=== PATIENT | female | born 1935 | race Caucasian/White ===

== ENCOUNTER → 2016-10-31 | Day surgery (SDC) | payer MEDICARE ==
[~2016-10-31] MED LIST: ALPR0.25 PO; ASPI1TAB69 PO; ATOR10TA15 PO; CALCCHW9 CHEW; DORZ2SOL15 EACH EYE; ERGO1CAP10 PO; HYALURONIDASE/LIDOCAINE/EPINEPHRINE/BUPIVACAINE 6 ML SYR LEFT EYE ONE; HYALURONIDASE/LIDOCAINE/EPINEPHRINE/BUPIVACAINE 6 ML SYR ONE; ICAPCAP PO; LANS30CA PO; LIDOCAINE HCL 1% 20 ML VIAL ONE; LIDOCAINE HCL 1% 30 ML VIAL ONE; LISI10TA3 PO; METF500T PO; METO25TA3 PO; MIDAZOLAM HCL 2 MG/2 ML VIAL ONE; PROPARACAINE HCL 0.5% OPHT SOLN 15 ML BTL LEFT EYE ONE; PROPOFOL 200 MG/20 ML AMP ONE; SODIUM CHLORID 0.9% 500 ML INJ 500 ML ONE; ZETI10TA5 PO
[2016-10-31 10:00] VITALS: PULSE 56
[2016-10-31] MEDS: FLURBIPROFEN 0.03% OPHT SOLN 2.5 ML BTL LEFT EYE SCH ×4 (10:00→10:15)
[2016-10-31] MEDS: PHENYLEPHRINE HCL 10% OPTH SOLN 5 ML BTL LEFT EYE SCH ×4 (10:00→10:15)
[2016-10-31] MEDS: TROPICAMIDE 1% OPHT SOLN 15 ML BTL LEFT EYE SCH ×4 (10:00→10:15)
[2016-10-31] MEDS: CYCLOPENTOLATE HCL 1% OPHT SOLN 2 ML BTL LEFT EYE SCH ×4 (10:00→10:15)
[2016-10-31] MEDS: TOBRAMYCIN/DEXAMETHASONE OPTH OINT 3.5 GM TUBE ONE ×2 (10:55→11:05)
[2016-10-31 11:10] VITALS: TEMP 97.8
[2016-10-31 11:35] VITALS: BP 153/66; PULSE 61; RESP 14; O2SAT 96
--- NOTE | 2016-11-03 04:46 | MP ---
cc: SYED MAGALLANES MD [facility] #[id number] DATE OF SURGERY: 10/31/2016 PREOPERATIVE DIAGNOSIS: Visually significant cataract, left eye. POSTOPERATIVE DIAGNOSIS: Visually significant cataract, left eye. OPERATION: Phacoemulsification with posterior chamber lens implantation, left eye. SURGEON: Syed Magallanes MD ANESTHESIA: Retrobulbar with MAC. COMPLICATIONS: None. PROCEDURE: After informed consent was obtained, the patient was brought into the operative suite and placed on appropriate monitors by the Anesthesia Service. The patient had received a prior retrobulbar injection of local anesthetic by the Anesthesia Service in the holding area. The patient's operative eye was then prepped and draped in the usual sterile fashion. A wire lid speculum was placed. A paracentesis incision was made in the peripheral cornea with a 1 mm sully keratome. The anterior chamber was filled with viscoelastic. The anterior chamber was then entered through a stepped, clear corneal incision using a sharp 3 mm sully keratome. A circular tear capsulorrhexis was then made with a bent needle cystitome. Following hydrodissection of the lens nucleus with balanced saline, phaco-emulsification of the nucleus was performed using a modified chopping technique. The remaining cortex was removed with irrigation/aspiration. The prior two procedures were both performed using the handpieces of the [employer] phaco unit. The capsular bag was then filled with viscoelastic. The intraocular lens was then injected into the capsular bag and positioned. The type of intraocular lens and its power can be found elsewhere in this chart. The remaining viscoelastic was then removed from the anterior chamber with the IA handpiece. The anterior chamber was reformed with balanced saline. The wound was then closed securely with stromal hydration. It was found to be watertight to an intraocular pressure of at least 30 mmHg by palpation. A small amount of balanced salt solution was then removed through the paracentesis site and the intraocular pressure at the end of the case was approximately 20 by palpation. All drapes were then removed. TobraDex ointment was then placed in the eye, which was closed beneath a semi-pressure patch dressing. The patient tolerated this procedure well and left the operating room awake and alert. The patient is to follow-up in my office in the morning. MD JACQUELINE Dunn/FAMILIA /11:46 AM /4:44 AM
== END | disposition home or self-care (01) ==
LOC: CSDC 08:44
PROVIDERS: ATTEND Optometrist Occupational Vision
DX: H25.12 Age-related nuclear cataract, left eye (principal)
CPT/HCPCS: 00142; 66984; J2250; J7040; V2632

== ENCOUNTER → 2016-12-05 | Day surgery (SDC) | payer MEDICARE ==
[~2016-12-05] VITALS: Ht 149.9 cm; Wt 68.2 kg
[~2016-12-05] MED LIST changes: +CYCLOPENTOLATE HCL 1% OPHT SOLN 2 ML BTL ONE; +FLURBIPROFEN 0.03% OPHT SOLN 2.5 ML BTL ONE; -HYALURONIDASE/LIDOCAINE/EPINEPHRINE/BUPIVACAINE 6 ML SYR LEFT EYE ONE; -LIDOCAINE HCL 1% 20 ML VIAL ONE; -MIDAZOLAM HCL 2 MG/2 ML VIAL ONE; +PHENYLEPHRINE HCL 10% OPTH SOLN 5 ML BTL ONE; -PROPARACAINE HCL 0.5% OPHT SOLN 15 ML BTL LEFT EYE ONE; +PROPARACAINE HCL 0.5% OPHT SOLN 15 ML BTL ONE; +TOBRAMYCIN/DEXAMETHASONE OPTH OINT 3.5 GM TUBE ONE; +TROPICAMIDE 1% OPHT SOLN 15 ML BTL ONE
[2016-12-05 09:07] VITALS: BP 186/95; PULSE 59; RESP 18; TEMP 98.1; O2SAT 95
[2016-12-05 09:35] VITALS: PULSE 60
[2016-12-05 11:25] VITALS: BP 145/72; PULSE 52; RESP 16; TEMP 98; O2SAT 98
--- NOTE | 2016-12-08 07:36 | MP ---
cc: SYED MAGALLANES MD [facility] #[id number] DATE OF SURGERY: 12/05/2016 PREOPERATIVE DIAGNOSIS: Visually significant cataract, right eye. POSTOPERATIVE DIAGNOSIS: Visually significant cataract, right eye. OPERATION: Phacoemulsification with posterior chamber lens implantation, right eye. SURGEON: Syed Magallanes MD ANESTHESIA: Retrobulbar with MAC. COMPLICATIONS: None. PROCEDURE: After informed consent was obtained, the patient was brought into the operative suite and placed on appropriate monitors by the Anesthesia Service. The patient had received a prior retrobulbar injection of local anesthetic by the Anesthesia Service in the holding area. The patient's operative eye was then prepped and draped in the usual sterile fashion. A wire lid speculum was placed. A paracentesis incision was made in the peripheral cornea with a 1 mm sully keratome. The anterior chamber was filled with viscoelastic. The anterior chamber was then entered through a stepped, clear corneal incision using a sharp 3 mm sully keratome. A circular tear capsulorrhexis was then made with a bent needle cystitome. Following hydrodissection of the lens nucleus with balanced saline, phaco-emulsification of the nucleus was performed using a modified chopping technique. The remaining cortex was removed with irrigation/aspiration. The prior two procedures were both performed using the handpieces of the [employer] phaco unit. The capsular bag was then filled with viscoelastic. The intraocular lens was then injected into the capsular bag and positioned. The type of intraocular lens and its power can be found elsewhere in this chart. The remaining viscoelastic was then removed from the anterior chamber with the IA handpiece. The anterior chamber was reformed with balanced saline. The wound was then closed securely with stromal hydration. It was found to be watertight to an intraocular pressure of at least 30 mmHg by palpation. A small amount of balanced salt solution was then removed through the paracentesis site and the intraocular pressure at the end of the case was approximately 20 by palpation. All drapes were then removed. TobraDex ointment was then placed in the eye, which was closed beneath a semi-pressure patch dressing. The patient tolerated this procedure well and left the operating room awake and alert. The patient is to follow-up in my office in the morning. MD JACQUELINE Dunn/FAMILIA /10:27 AM /6:29 AM
== END | disposition home or self-care (01) ==
LOC: PHSDC 07:55
PROVIDERS: ATTEND Optometrist Occupational Vision
DX: H25.11 Age-related nuclear cataract, right eye (principal); I10 Essential (primary) hypertension; E11.9 Type 2 diabetes mellitus without complications
CPT/HCPCS: 00142; 66984; 82948; J7040; V2632